=== PATIENT | male | born 1935 | race Two or more races ===

== ENCOUNTER 2019-10-30 11:39 | Inpatient (IN) | payer MEDICARE ==
[~2019-10-30] VITALS: Ht 188 cm; Wt 69.9 kg
[2019-10-30 13:15] LABS: EOSINOPHILS % 7.6 % (0.0-5.0); HEMATOCRIT. 31.8 % (42.0-52.0); HEMOGLOBIN. 10.5 g/dL (14.0-18.0); LYMPHOCYTES % 15.3 % (20.0-50.0); MEAN CORPUSCULAR HEMOGLOBIN 30.1 pg (28.0-32.0); MEAN CORPUSCULAR VOLUME 91.3 fL (80.0-94.0); MEAN PLATELET VOLUME 6.9 fl (7.4-10.4); MONOCYTES % 5.6 % (2.0-8.0); NEUTROPHILS % 70.5 % (40.0-76.0); PLATELET 278 x1000/uL (130-400); RED BLOOD CELL COUNT 3.48 mill/uL (4.7-6.1); RED CELL DISTRIBUTION WIDTH 16.9 % (11.6-14.6)
[2019-10-30 13:18] LABS: CHLORIDE 107 mEq/L (98-107)
[2019-10-30] MEDS ORDERED: CEFTRIAXONE 1 G PREMIX 50 ML IV ONE (13:30)
[2019-10-30] MEDS ORDERED: MORPHINE SULFATE 4 MG/ML CPJ (NOT FOR IM USE) IV ONE (14:00)
[2019-10-30] MEDS ORDERED: IPRATROPIUM/ALBUTEROL 0.5-3(2.5)MG/3ML NEB HHN PRN (16:30)
[2019-10-30] MEDS ORDERED: ACETAMINOPHEN 325MG TABLET PO PRN ×2 (16:30)
[2019-10-30] MEDS ORDERED: ONDANSETRON HCL 4MG/2ML INJ IV PRN (16:30)
[2019-10-30] MEDS ORDERED: DOCUSATE SODIUM 100MG CAPSULE PO PRN (16:30)
[2019-10-30] MEDS ORDERED: MAGNESIUM/ALUMINUM HYDROXIDE/SIMETHICONE 30ML UDC PO PRN (16:30)
[2019-10-30] MEDS ORDERED: GUAIFENESIN 200MG/10ML SUGAR FREE UDC PO PRN (16:30)
[2019-10-30] MEDS ORDERED: CLONIDINE 0.1MG TABLET PO PRN (16:30)
[2019-10-30] MEDS ORDERED: PIPERACILLIN/TAZ 3.375G PREMIX 50 ML IV SCH (16:30)
[2019-10-30] MEDS ORDERED: NITROGLYCERIN 0.4MG TABLET SL SL PRN (16:30)
[2019-10-30] MEDS ORDERED: TRAMADOL 50MG TABLET PO PRN (16:47)
[2019-10-30] MEDS ORDERED: ENOXAPARIN 40MG/0.4ML SYR SUBCUT SCH (17:00)
[2019-10-30] MEDS ORDERED: PIPERACILLIN/TAZ 3.375G PREMIX 50 ML IV NR (17:00)
[2019-10-30 17:06] LABS: T4 FREE 1.25 ng/dL (0.76-1.46)
[2019-10-30 17:15] LABS: FOLIC ACID (FOLATE) SERUM 18.4 ng/mL (>5.38)
[2019-10-30] MEDS ORDERED: VANCOMYCIN 1,750 MG in DEXT 5% WATER 250 ML IV NR (17:30)
[2019-10-30 19:30] LABS: CLARITY URINE CLEAR (CLEAR); COLOR URINE DARK YELLOW (YELLOW); KETONES URINE TRACE (NEGATIVE); LEUKOCYTE ESTERASE URINE 1+ (NEGATIVE); NITRITE URINE POSITIVE (NEGATIVE); OCCULT BLOOD URINE NEGATIVE (NEGATIVE); PROTEIN URINE TRACE (NEGATIVE); SPECIFIC GRAVITY URINE 1.024 (1.005-1.030)
[2019-10-30 19:42] LABS: *BARBITURATES SCREEN URINE NEGATIVE (NEGATIVE); *BENZODIAZEPINES SCREEN URINE NEGATIVE (NEGATIVE); *COCAINE SCREEN URINE NEGATIVE (NEGATIVE); CANNABINOID URINE SCREEN NEGATIVE (NEGATIVE); METHADONE URINE SCREEN NEGATIVE (NEGATIVE); OPIATES URINE SCREEN PRESUMTIVE POSITIVE (NEGATIVE); PHENCYCLIDINE URINE SCREEN NEGATIVE (NEGATIVE)
[2019-10-30 19:43] LABS: *AMPHETAMINES SCREEN URINE NEGATIVE (NEGATIVE)
[2019-10-30] MEDS ORDERED: ZOLPIDEM TARTRATE 5MG TABLET PO PRN (20:00)
[2019-10-30 21:15] VITALS: BP 138/87
[2019-10-30] MEDS: FAMOTIDINE 20MG TABLET PO SCH (22:22)
[2019-10-30] MEDS: ASCORBIC ACID 500 MG TABLET PO SCH (22:23)
[2019-10-30] MEDS: MORPHINE SULFATE 2 MG/ML CPJ (NOT FOR IM USE) IV PRN (22:24)
[2019-10-30 22:30] VITALS: BP 138/87
[2019-10-31] VITALS: BP 127/76
[2019-10-31] MEDS ORDERED: PIPERACILLIN/TAZOBACTAM 3.375 G in DEXT 5% WATER 100 ML IV SCH ×2
[2019-10-31 00:25] LABS: CREATINE KINASE 43 IU/L (39-308); CREATINE KINASE MB FRACTION < 1.0 ng/mL (0.5-3.6)
[2019-10-31 02:07] LABS: INR 1.1; PROTHROMBIN TIME 11.6 sec (9.6-11.0)
[2019-10-31] MEDS: PIPERACILLIN/TAZOBACTAM 3.375 G in DEXT 5% WATER 100 ML IV SCH ×5 (02:38→23:35)
[2019-10-31 04:00] VITALS: BP 129/74
[2019-10-31] MEDS: ENOXAPARIN 80MG/0.8ML SYR SUBCUT SCH ×2 (04:43→22:02)
[2019-10-31 08:00] VITALS: BP 123/68
[2019-10-31 08:01] LABS: BASOPHILS % 0.6 % (0.0-2.0); EOSINOPHILS % 4.4 % (0.0-5.0); HEMATOCRIT. 31.6 % (42.0-52.0); HEMOGLOBIN. 10.3 g/dL (14.0-18.0); MEAN CORPUSCULAR HEMOGLOBIN 29.9 pg (28.0-32.0); MEAN CORPUSCULAR VOLUME 91.5 fL (80.0-94.0); MEAN PLATELET VOLUME 6.8 fl (7.4-10.4); MONOCYTES % 6.3 % (2.0-8.0); NEUTROPHILS % 78.7 % (40.0-76.0); PLATELET 277 x1000/uL (130-400); RED BLOOD CELL COUNT 3.45 mill/uL (4.7-6.1); RED CELL DISTRIBUTION WIDTH 16.7 % (11.6-14.6)
[2019-10-31 08:21] LABS: CHLORIDE 104 mEq/L (98-107)
[2019-10-31 08:31] LABS: PHOSPHORUS 2.8 mg/dL (2.5-4.9)
[2019-10-31 08:34] LABS: CREATINE KINASE 50 IU/L (39-308)
[2019-10-31] MEDS ORDERED: VANCOMYCIN 750 MG PREMIX 150 ML IV SCH (09:00)
[2019-10-31] MEDS: ASPIRIN 81MG EC TABLET PO SCH (09:35)
[2019-10-31] MEDS: ASCORBIC ACID 500 MG TABLET PO SCH ×2 (09:35→22:03)
[2019-10-31] MEDS: VANCOMYCIN 750 MG PREMIX 150 ML IV SCH ×2 (09:35→22:03)
[2019-10-31] MEDS: ZINC SULFATE 220 MG ( 50 ) CAPSULE PO SCH (09:35)
[2019-10-31] MEDS: FAMOTIDINE 20MG TABLET PO SCH ×2 (09:35→22:03)
[2019-10-31] MEDS: MORPHINE SULFATE 2 MG/ML CPJ (NOT FOR IM USE) IV PRN (11:59)
[2019-10-31 12:00] VITALS: BP 87/40
[2019-10-31] MEDS ORDERED: CELE50CA PO (14:41)
[2019-10-31] MEDS ORDERED: ASPI-986 PO (14:41)
[2019-10-31 16:00] VITALS: BP 96/42
[2019-10-31] MEDS: SODIUM CHLORIDE 0.9% 1,000 ML IV SCH ×2 (18:02→23:42)
[2019-11-01] VITALS: BP 92/48
[2019-11-01 04:00] VITALS: BP 83/38
[2019-11-01] MEDS: PIPERACILLIN/TAZOBACTAM 3.375 G in DEXT 5% WATER 100 ML IV SCH ×3 (05:02→17:38)
[2019-11-01] MEDS: KETOROLAC 15MG/ML VIAL IV PRN ×3 (05:15→17:47)
[2019-11-01 08:00] VITALS: BP 85/41
[2019-11-01] MEDS: FAMOTIDINE 20MG TABLET PO SCH ×2 (08:45→20:23)
[2019-11-01] MEDS: ENOXAPARIN 80MG/0.8ML SYR SUBCUT SCH ×2 (08:45→20:24)
[2019-11-01] MEDS: ZINC SULFATE 220 MG ( 50 ) CAPSULE PO SCH (08:45)
[2019-11-01] MEDS: ASCORBIC ACID 500 MG TABLET PO SCH ×2 (08:45→20:23)
[2019-11-01] MEDS: ASPIRIN 81MG EC TABLET PO SCH (08:45)
[2019-11-01] MEDS: VANCOMYCIN 750 MG PREMIX 150 ML IV SCH ×2 (08:46→20:24)
[2019-11-01 08:54] LABS: CHLORIDE 107 mEq/L (98-107)
[2019-11-01 12:00] VITALS: BP 92/37
[2019-11-01] MEDS ORDERED: POTASSIUM CHLORIDE 20MEQ TABLET SR PO NR (12:30)
[2019-11-01 16:00] VITALS: BP 115/60
[2019-11-01] MEDS: SODIUM CHLORIDE 0.9% 1,000 ML IV SCH (17:45)
[2019-11-01 20:00] VITALS: BP 95/50
[2019-11-02] VITALS: BP 102/56
[2019-11-02] MEDS: PIPERACILLIN/TAZOBACTAM 3.375 G in DEXT 5% WATER 100 ML IV SCH ×5 (00:33→23:18)
[2019-11-02] MEDS: MORPHINE SULFATE 2 MG/ML CPJ (NOT FOR IM USE) IV PRN (01:46)
[2019-11-02 04:00] VITALS: BP 102/56
[2019-11-02] MEDS: KETOROLAC 15MG/ML VIAL IV PRN ×2 (06:48→13:59)
[2019-11-02 08:00] VITALS: BP 118/82
[2019-11-02] MEDS: ASCORBIC ACID 500 MG TABLET PO SCH ×2 (09:32→20:42)
[2019-11-02] MEDS: FAMOTIDINE 20MG TABLET PO SCH ×2 (09:32→20:42)
[2019-11-02] MEDS: ZINC SULFATE 220 MG ( 50 ) CAPSULE PO SCH (09:32)
[2019-11-02] MEDS: ASPIRIN 81MG EC TABLET PO SCH (09:32)
[2019-11-02] MEDS: VANCOMYCIN 750 MG PREMIX 150 ML IV SCH ×2 (09:32→20:39)
[2019-11-02] MEDS: ENOXAPARIN 80MG/0.8ML SYR SUBCUT SCH ×2 (09:34→20:44)
[2019-11-02] MEDS: SODIUM CHLORIDE 0.9% 1,000 ML IV SCH (10:00)
[2019-11-02 12:00] VITALS: BP 122/62
[2019-11-02 16:00] VITALS: BP 130/74
[2019-11-02 20:00] VITALS: BP 107/63
[2019-11-03] VITALS: BP 142/86
[2019-11-03] MEDS: SODIUM CHLORIDE 0.9% 1,000 ML IV SCH ×2 (00:48→16:00)
[2019-11-03] MEDS: KETOROLAC 15MG/ML VIAL IV PRN ×2 (00:48→13:54)
[2019-11-03 04:00] VITALS: BP 124/64
[2019-11-03] MEDS: PIPERACILLIN/TAZOBACTAM 3.375 G in DEXT 5% WATER 100 ML IV SCH ×3 (05:06→17:46)
[2019-11-03 07:33] LABS: CHLORIDE 109 mEq/L (98-107)
[2019-11-03 08:00] VITALS: BP 138/65
[2019-11-03] MEDS: ZINC SULFATE 220 MG ( 50 ) CAPSULE PO SCH (09:05)
[2019-11-03] MEDS: ASPIRIN 81MG EC TABLET PO SCH (09:05)
[2019-11-03] MEDS: FAMOTIDINE 20MG TABLET PO SCH ×2 (09:05→20:33)
[2019-11-03] MEDS: ASCORBIC ACID 500 MG TABLET PO SCH ×2 (09:05→20:33)
[2019-11-03] MEDS: ENOXAPARIN 80MG/0.8ML SYR SUBCUT SCH ×2 (09:07→20:35)
[2019-11-03] MEDS: VANCOMYCIN 750 MG PREMIX 150 ML IV SCH ×2 (09:08→20:33)
[2019-11-03] MEDS: DOCUSATE SODIUM 100MG CAPSULE PO SCH ×2 (12:25→20:33)
[2019-11-03 16:00] VITALS: BP 128/67
[2019-11-03 20:00] VITALS: BP 132/70
[2019-11-03] MEDS: POLYETHYLENE GLYCOL 3350 (17GM) 1 DOSE PACK PO SCH (20:34)
[2019-11-04] VITALS: BP 116/65
[2019-11-04] MEDS: PIPERACILLIN/TAZOBACTAM 3.375 G in DEXT 5% WATER 100 ML IV SCH ×5 (00:09→23:17)
[2019-11-04 04:00] VITALS: BP 127/68
[2019-11-04] MEDS: KETOROLAC 15MG/ML VIAL IV PRN ×2 (06:10→12:19)
[2019-11-04] MEDS: SODIUM CHLORIDE 0.9% 1,000 ML IV SCH ×3 (06:58→23:17)
[2019-11-04 08:00] VITALS: BP 137/71
[2019-11-04] MEDS: DOCUSATE SODIUM 100MG CAPSULE PO SCH ×2 (09:00→16:42)
[2019-11-04] MEDS: ASCORBIC ACID 500 MG TABLET PO SCH ×2 (09:11→21:07)
[2019-11-04] MEDS: ASPIRIN 81MG EC TABLET PO SCH (09:11)
[2019-11-04] MEDS: ENOXAPARIN 80MG/0.8ML SYR SUBCUT SCH ×2 (09:11→21:08)
[2019-11-04] MEDS: ZINC SULFATE 220 MG ( 50 ) CAPSULE PO SCH (09:11)
[2019-11-04] MEDS: FAMOTIDINE 20MG TABLET PO SCH ×2 (09:11→21:07)
[2019-11-04] MEDS: VANCOMYCIN 750 MG PREMIX 150 ML IV SCH ×2 (09:22→21:28)
[2019-11-04 12:00] VITALS: BP 131/74
[2019-11-04 16:00] VITALS: BP 116/74
[2019-11-04 20:00] VITALS: BP 122/72
[2019-11-04] MEDS: POLYETHYLENE GLYCOL 3350 (17GM) 1 DOSE PACK PO SCH (21:00)
[2019-11-04] MEDS ORDERED: TRAMADOL 50MG TABLET PO PRN (21:30)
[2019-11-04] MEDS: KETOROLAC 30MG/ML VIAL IV PRN (21:41)
[2019-11-05] VITALS (7 sets, daily range): BP systolic 34–134; BP diastolic 65–82
[2019-11-05] MEDS: PIPERACILLIN/TAZOBACTAM 3.375 G in DEXT 5% WATER 100 ML IV SCH ×3 (05:26→17:59)
[2019-11-05] MEDS: KETOROLAC 30MG/ML VIAL IV PRN (06:19)
[2019-11-05] MEDS: DOCUSATE SODIUM 100MG CAPSULE PO SCH ×2 (09:00→17:00)
[2019-11-05] MEDS: FAMOTIDINE 20MG TABLET PO SCH (09:13)
[2019-11-05] MEDS: VANCOMYCIN 750 MG PREMIX 150 ML IV SCH (09:13)
[2019-11-05] MEDS: ENOXAPARIN 80MG/0.8ML SYR SUBCUT SCH (09:13)
[2019-11-05] MEDS: ZINC SULFATE 220 MG ( 50 ) CAPSULE PO SCH (09:13)
[2019-11-05] MEDS: ASPIRIN 81MG EC TABLET PO SCH (09:13)
[2019-11-05] MEDS: ASCORBIC ACID 500 MG TABLET PO SCH (09:13)
[2019-11-05] MEDS: SODIUM CHLORIDE 0.9% 1,000 ML IV SCH (09:43)
[2019-11-06] MEDS ORDERED: ZINC SULFATE 220 MG ( 50 ) CAPSULE PO SCH (09:00)
== END 2019-11-05 20:59 | disposition home or self-care (01) | DRG 853 ==
LOC: ER 11:39 → EDBEDREQ 13:03 → EDBEDREQSVC 16:01 → EDBEDREQ 16:01 → SUPCPDRO 16:16 → EDBEDREQ 18:00 → ENRESERV 20:46 → 6EST 21:39
PROVIDERS: ADMIT Internal Medicine; ATTEND Internal Medicine
PROC: 0KBP0ZZ Excision of Left Hip Muscle, Open Approach (ICD-10-PCS; principal; 2019-10-31)
PROC: 0KBN0ZZ Excision of Right Hip Muscle, Open Approach (ICD-10-PCS; 2019-10-31)
DX: A41.9 Sepsis, unspecified organism (principal); L89.154 Pressure ulcer of sacral region, stage 4; E43 Unspecified severe protein-calorie malnutrition; Z68.1 Body mass index [BMI] 19.9 or less, adult; G82.20 Paraplegia, unspecified; I82.431 Acute embolism and thrombosis of right popliteal vein; I82.412 Acute embolism and thrombosis of left femoral vein; I82.411 Acute embolism and thrombosis of right femoral vein; L02.413 Cutaneous abscess of right upper limb; R26.9 Unspecified abnormalities of gait and mobility; D63.8 Anemia in other chronic diseases classified elsewhere; J45.909 Unspecified asthma, uncomplicated; Z74.01 Bed confinement status
CPT/HCPCS: 36415; 80048; 80053; 80061; 80202; 80305; 81003; 82040; 82550; 82553; 82607; 82746; 83036; 83540; 83550; 84100; 84134; 84145; 84439; 84443; 84484; 85025; 85379; 87070; 87077; 87186; 93005; 93306; 93970; 97110; 97162; 97166; 97530; 99285; J0696; J1650; J1885; J2270; J2405; J2543; J3370; J7030; J7060